=== PATIENT | female | born 1945 | race Caucasian/White ===

== ENCOUNTER 2017-04-27 23:22 | Inpatient (IN) | payer MEDICARE ==
[~2017-04-27] VITALS: Ht 182.9 cm; Wt 138.2 kg
--- NOTE | ~2017-04-27 | OP ---
PATIENT NAME: MEIR RAMIRES MEDICAL RECORD: [id number] :41 LOCATION:D.MS [id number] ADMISSION DATE:04/27/17 SURGEON: EVENS LASSITER MD DATE OF OPERATION: 04/28/2017 PREOPERATIVE DIAGNOSIS: Postmenopausal bleeding. POSTOPERATIVE DIAGNOSIS. Postmenopausal bleeding. PROCEDURE: Dilation and curettage. SURGEON: Evens Lassiter MD ANESTHESIOLOGIST: Jesus Olmedo MD ANESTHESIA: General. FINDINGS: Exam under anesthesia is limited by body habitus. The cervix is unremarkable. Copious amounts of curettings returned at the time of D&C. SPECIMEN REMOVED: Endometrial curettings. SPECIMEN DISPOSITION: Pathology. ESTIMATED BLOOD LOSS: Less or equal to 50 mL. FLUIDS: 300 cc of normal saline. URINE OUTPUT: Quantity sufficient to void prior to the procedure. COMPLICATIONS: None. DRAINS: None. INDICATIONS: The patient is a 71-year-old female recently admitted to [facility] for depression and suicidal ideation. The patient has been discharged from there. During that time, WATER PLANT OPERATOR consult obtained, the patient with heavy vaginal bleeding and uterine or transvaginal ultrasound showing the uterine lining in excess of 3 cm. The patient has been consented for dilation and curettage. DESCRIPTION OF PROCEDURE: After informed consent was assured, the patient was taken to the operating room where anesthetic is obtained. She was placed in Dontrell stirrups and prepped and draped in the usual sterile fashion. Cervix is grasped with a single tooth tenaculum after introducing a speculum. The cervix is dilated to accommodate a #2 sharp curette. This was passed gently to the fundus and good cry is now obtained throughout. The specimens that have been obtained are scraped out onto a Telfa pad and all fragments removed from the vaginal vault with a spoon. All fragments as well as specimen on the Telfa pad was sent to pathology. The patient is awake and went to recovery room in stable condition. Sponge, lap, needle counts are correct. TRANSINT:[id number] Voice Confirmation ID: [id number] DOCUMENT ID: [id number] OPERATIVE REPORT [id number] MEIR RAMIRES EVENS LASSITER MD at 0820 CC: [id number] DICTATION DATE: 04/28/17 1012 MACHINE TRIMMER: 04/28/17 1332 DIS IN 04/28/17 [facility] [address] [place] [address]
--- NOTE | ~2017-04-27 | DS ---
PATIENT:MEIR RAMIRES :41 MEDICAL RECORD: [id number] DISCHARGE SUMMARY ADMISSION DATE: 04/27/17 DISCHARGE DATE: 04/28/17 DATE OF ADMISSION: 04/27/2017 DATE OF DISCHARGE: 04/28/2017 ADMISSION DIAGNOSES: 1. Postmenopausal bleeding. 2. Morbid obesity. DISCHARGE DIAGNOSES: 1. Postmenopausal bleeding. 2. Morbid obesity. PROCEDURE: Dilation and curettage. ATTENDING PHYSICIAN: Jone Magallon MD HISTORY OF PRESENT ILLNESS: See the H&P in the chart. HOSPITAL COURSE: The [facility] The patient was discharged from there. During that hospitalization, the patient had significant vaginal bleeding and BALANCE BRIDGE INSPECTOR was consulted. The patient had scheduled D&C, but prior to procedure being performed the patient was discharged. Due to the patient's physical handicaps and difficulty in transportation, it was felt prudent to keep her hospitalized to facilitate the necessary procedure for diagnosis and treatment. The patient had no significant events occur the 1 night she stayed in the hospital. The patient had her dilation and curettage performed and she was discharged home. The patient has been asked to follow up at the [facility] in 2 weeks to review her pathology and discuss any further treatment if indicated. TRANSINT:[id number] Voice Confirmation ID: [id number] DOCUMENT ID: [id number] JONE MAGALLON MD at 1727 CC: [id number] DICTATION DATE: 06/11/17 07 CARDIOVASCULAR OR NURSE: 06/11/17 1354 DIS IN 04/28/17 [place] [id number] [place] [address]
--- NOTE | ~2017-04-27 | HP ---
PATIENT: MEIR RAMIRES MEDICAL RECORD: [id number] ACCOUNT: [id number] LOCATION:D.MS [id number] : 41 ADMISSION DATE: 04/27/17 HISTORY AND PHYSICAL EXAMINATION See Addendum Objective Data History of Present Illness: Patient is a 71 year old with several month history of vaginal bleeding. Denies pain and early saiety. No unintended wt loss. Neurological Hx: NONE EENT Hx: GLASSES, DENTURES Endocrine Hx: NONE Cardiovascular Hx: NONE Respiratory Hx: NONE Cancer Hx: NONE Immune Disorders: NONE Psychosocial Hx: DEPRESSION, SUICIDAL, ANXIETY Surgery Hx: NONE Allergies Coded Allergies: No Known Allergies (04/22/17) Medications Reported Medications [VENLAFAXINE ER 150MG] Levothyroxine (Levoxyl) 50 MCG PO BEFORE BREAKFAST Tolterodine (Detrol) 2 MG PO DAILY Lisinopril 10 MG PO DAILY Discontinued Reported Medications Venlafaxine (Effexor) 75 MG PO DAILY Levothyroxine (Synthroid) 25 MCG PO DAILY@0600 Family Hx Parent: CARDIOVASCULAR DISEASE, CANCER Sibling: NONE KNOWN Natural Child: NONE KNOWN Social History Smoking Status: FORMER TOBACCO USER Alcohol: No Recreational Drug Use: No Review of Systems GEN fatigue, negative weakness, negative anxiety, depression, negative for fever PACKAGING TECH negative dizziness, negative numbness, negative mental change CV neg chest pain, neg palpitations, neg orthopnea ID neg fever, neg chills, neg sweats GI neg nausea, neg emesis, neg abdominal pain neg dialysis, neg wild, neg hematuria HEME neg epistaxis, neg hemoptysis, neg hematuria, neg GI bleeding ENDO neg thirsty, neg sweaty Skin No Rash, No Lesions HISTORY AND PHYSICAL [id number] MEIR RAMIRES Pulm neg SOB, neg cough Musc/skel pain, stiffness OB Assessment VS: Vital Signs Date Time Temp Pulse Resp B/P B/P Pulse O2 O2 Flow FiO2 Mean Ox Delivery Rate 04/27 0947 97.3 71 16 130/81 96 ROOM AIR 04/26 1916 98.2 92 15 104/49 93 General Appearance: alert, awake, conversant HEENT: anicteric, mucus membranes moist, pink conjunctivae Cardiovascular Assessment: normal cap refill, pedal edema Neur/PACKAGING TECH: alert, oriented times 4, speech clear Resp Assessment: no acute distress Abdomen/GI Assessment: soft, nontender Extremity Assessment: normal inspection Finding/Data: I&O LAST 24 HOURS 04/27 0600 Intake Total 1320 Output Total Balance 1320 Laboratory Tests 04/24 04/25 04/25 04/26 04/26 1716 0639 1640 0638 1726 Chemistry POC Glucose (70 - 110 MG/DL) 108 104 104 98 99 04/27 04/27 0600 0627 Chemistry POC Glucose (70 - 110 MG/DL) 100 Hematology WBC (4.8 - 10.8 10x3/uL) 11.8 RBC (4.00 - 5.40 10x6/uL) 3.90 Hgb (12 - 16 g/dL) 11.9 Hct (36.0 - 48.0 %) 37.6 MCV (80.0 - 100.0 fL) 96.4 MCH (26.0 - 34.0 pg) 30.5 MCHC (31.0 - 37.0 g/dL) 31.6 RDW (11.5 - 14.5 %) 15.2 Plt Count (130 - 400 10x3/uL) 197 MPV (7.4 - 10.4 fL) 11.1 Absolute Lymphs (auto) (1.18 - 3.74 10x3/uL) 2.43 Neutrophils % (40 - 80 %) 68.4 Lymphocytes % (15 - 50 %) 20.7 Monocytes % (2 - 11 %) 8.7 Eosinophils % (0 - 7 %) 1.3 Basophils % (0 - 2 %) 0.3 Immature Granulocytes (0 - 5 %) 0.6 Absolute Neutrophils (1.56 - 6.13 10x3/uL) 8.04 HISTORY AND PHYSICAL [id number] MEIR RAMIRES H&P IMPRESSION Impression: Postmenopausal bleeding D&C at 1639 SECTION 2 ADDENDUM 1: 04/27/17 1640 JONE LASSITER PMHx: Hypothyroidism, HTN, OAB at 1641 All edits/amendments must be made on the electronic document DICTATION DATE: 04/27/171633 SUPERVISOR CORE SHOP: LEONID 04/27/17 163 RPT#: [id number] DC DATE: STATUS: ADM IN [facility] [address] [place] [address] END OF REPORT 05/24/2017 H&P was entered on wrong account number. Copied and put on correct account number. JONE Jama MD at 1647 CC: [id number] DICTATION DATE: 04/27/17 1639 SUPERVISOR CORE SHOP: LUIS ANTONIO 05/24/17 0851 DIS IN 04/28/17 [place] [address] [place] [address]
[~2017-04-27 23:22] MED LIST: DETROL2 MG PO; EFFEXOR25 MG PO; EFFEXOR75 MG PO; LEVOXYL50 MCG PO; LEXAPRO10 MG PO; LISINOPRIL10 MG PO; SYNTHROID25 MCG PO; VENLAFAXINE ER 150MG; WELLBUTRIN SR150 MG PO
[2017-04-28 03:24] VITALS: BP 120/52; Ht 182.9 cm; Wt 138.2 kg
[2017-04-28 05:54] VITALS: BP 137/56
[2017-04-28 07:41] VITALS: BP 153/62
[2017-04-28 15:16] VITALS: BP 113/81
== END 2017-04-28 21:32 | disposition home or self-care (01) | DRG 744 ==
LOC: D.MS 23:22
PROVIDERS: Obstetrics & Gynecology
PROC: 0UDB7ZZ Extraction of Endometrium, Via Natural or Artificial Opening (ICD-10-PCS; principal; 2017-04-28 10:00)
DX: N95.0 Postmenopausal bleeding (principal); Z68.41 Body mass index [BMI] 40.0-44.9, adult; N39.0 Urinary tract infection, site not specified; F32.9 Major depressive disorder, single episode, unspecified; E03.9 Hypothyroidism, unspecified; I10 Essential (primary) hypertension; E66.01 Morbid (severe) obesity due to excess calories; J42 Unspecified chronic bronchitis; G89.4 Chronic pain syndrome; E53.8 Deficiency of other specified B group vitamins; E55.9 Vitamin D deficiency, unspecified; B95.4 Other streptococcus as the cause of diseases classified elsewhere

== ENCOUNTER 2017-07-27 11:33 | Inpatient (IN) | payer MEDICARE ==
[~2017-07-27] VITALS: Ht 182.9 cm; Wt 138.3 kg
[2017-07-27 12:36] LABS: BASOPHILS 0.3 % (0-2); HEMATOCRIT 41.4 % (36.0-48.0); HEMOGLOBIN 13.3 g/dL (12-16); IMMATURE GRANULOCYTES 0.9 % (0-5); LYMPHOCYTES 20.4 % (15-50); MCH 30.4 pg (26.0-34.0); MCHC 32.1 g/dL (31.0-37.0); MCV 94.5 fL (80.0-100.0); MEAN PLATELET VOLUME 11.1 fL (7.4-10.4); MONOCYTES 7.1 % (2-11); NEUTROPHILS 70.3 % (40-80); PLATELET COUNT 200 10x3/uL (130-400); RBC 4.38 10x6/uL (4.00-5.40); RDW 16.1 % (11.5-14.5); WBC 14.2 10x3/uL (4.8-10.8)
[2017-07-27 12:50] LABS: ALBUMIN 2.9 g/dL (3.4-5.0); BILIRUBIN - TOTAL 0.35 mg/dL (0.2-1.3); CALCIUM 9.2 mg/dL (8.5-10.1); CARBON DIOXIDE 30.6 mmol/L (21.0-32.0); CREATININE - SERUM 1.1 mg/dL (0.6-1.3); POTASSIUM - SERUM 4.6 mmol/L (3.5-5.1); PROTEIN - SERUM 7.4 g/dL (6.4-8.2)
[2017-07-27 13:16] LABS: APPEARANCE CLEAR (CLEAR); BACTERIA FEW /hpf (NONE SEEN); BILIRUBIN NEGATIVE (NEGATIVE); COLOR YELLOW (YELLOW); EPITHELIAL CELLS 0-5 /hpf (0-5); GLUCOSE NEGATIVE (NEGATIVE); KETONE NEGATIVE (NEGATIVE); NITRITE NEGATIVE (NEGATIVE); PROTEIN NEGATIVE (NEGATIVE); WHITE CELLS - URINE OCC /hpf (0-5)
[2017-07-27] MEDS ORDERED: BIOFREEZE (18:43)
[2017-07-27 20:00] VITALS: BP 94/75
[2017-07-27 23:41] VITALS: BP 158/62; BMI 41.4
[2017-07-28] VITALS: BP 98/42
[2017-07-28 04:00] VITALS: BP 106/59
[2017-07-28 06:39] LABS: BASOPHILS 0.2 % (0-2); EOSINOPHILS 1.2 % (0-7); HEMOGLOBIN 13.2 g/dL (12-16); IMMATURE GRANULOCYTES 0.9 % (0-5); LYMPHOCYTES 23.3 % (15-50); MCH 29.9 pg (26.0-34.0); MCHC 31.4 g/dL (31.0-37.0); MEAN PLATELET VOLUME 11.4 fL (7.4-10.4); MONOCYTES 9.2 % (2-11); NEUTROPHILS 65.2 % (40-80); PLATELET COUNT 219 10x3/uL (130-400); RBC 4.42 10x6/uL (4.00-5.40); RDW 16.6 % (11.5-14.5); WBC 12.9 10x3/uL (4.8-10.8)
[2017-07-28 06:51] LABS: CALCIUM 9.2 mg/dL (8.5-10.1); CARBON DIOXIDE 29.6 mmol/L (21.0-32.0); CREATININE - SERUM 1.2 mg/dL (0.6-1.3); POTASSIUM - SERUM 4.6 mmol/L (3.5-5.1)
[2017-07-28 08:45] VITALS: BP 112/63
[2017-07-28 12:30] VITALS: BP 122/58
[2017-07-28 15:05] VITALS: Ht 182.9 cm; Wt 138.3 kg
[2017-07-28 16:45] VITALS: BP 150/72
[2017-07-28 20:00] VITALS: BP 138/57
[2017-07-29] VITALS: BP 142/67
[2017-07-29 04:00] VITALS: BP 139/56
[2017-07-29 06:37] LABS: BASOPHILS 0.2 % (0-2); EOSINOPHILS 1.3 % (0-7); HEMATOCRIT 43.3 % (36.0-48.0); HEMOGLOBIN 13.7 g/dL (12-16); LYMPHOCYTES 22.8 % (15-50); MCH 30.4 pg (26.0-34.0); MCHC 31.6 g/dL (31.0-37.0); MEAN PLATELET VOLUME 11.4 fL (7.4-10.4); MONOCYTES 7.5 % (2-11); NEUTROPHILS 67.2 % (40-80); PLATELET COUNT 199 10x3/uL (130-400); RBC 4.51 10x6/uL (4.00-5.40); RDW 16.6 % (11.5-14.5); WBC 12.7 10x3/uL (4.8-10.8)
[2017-07-29 06:56] LABS: ANION GAP 11.5 mmol/L (8-16); CALCIUM 8.9 mg/dL (8.5-10.1); CREATININE - SERUM 1.2 mg/dL (0.6-1.3); POTASSIUM - SERUM 4.5 mmol/L (3.5-5.1)
[2017-07-29 08:43] VITALS: BP 120/70
[2017-07-29 11:38] VITALS: BP 107/35
[2017-07-29 15:42] VITALS: BP 120/62
[2017-07-29 20:13] VITALS: BP 141/50
[2017-07-30] VITALS: BP 116/68
[2017-07-30 04:00] VITALS: BP 124/49
[2017-07-30 05:45] LABS: BASOPHILS 0.2 % (0-2); EOSINOPHILS 1.6 % (0-7); HEMATOCRIT 40.6 % (36.0-48.0); HEMOGLOBIN 12.8 g/dL (12-16); IMMATURE GRANULOCYTES 0.9 % (0-5); LYMPHOCYTES 24.1 % (15-50); MCH 30.2 pg (26.0-34.0); MCHC 31.5 g/dL (31.0-37.0); MCV 95.8 fL (80.0-100.0); MEAN PLATELET VOLUME 11.3 fL (7.4-10.4); MONOCYTES 7.5 % (2-11); NEUTROPHILS 65.7 % (40-80); PLATELET COUNT 212 10x3/uL (130-400); RBC 4.24 10x6/uL (4.00-5.40); RDW 16.7 % (11.5-14.5); WBC 12.8 10x3/uL (4.8-10.8)
[2017-07-30 06:11] LABS: ANION GAP 10.5 mmol/L (8-16); CALCIUM 8.6 mg/dL (8.5-10.1); CARBON DIOXIDE 29.7 mmol/L (21.0-32.0); CREATININE - SERUM 1.2 mg/dL (0.6-1.3); POTASSIUM - SERUM 4.2 mmol/L (3.5-5.1)
[2017-07-30 08:25] VITALS: BP 102/52
[2017-07-30 11:49] VITALS: BP 130/49
[2017-07-30 16:43] VITALS: BP 143/66
[2017-07-30 20:00] VITALS: BP 96/55
[2017-07-31 04:00] VITALS: BP 93/60
[2017-07-31 07:05] LABS: BASOPHILS 0.3 % (0-2); EOSINOPHILS 1.6 % (0-7); HEMATOCRIT 41.2 % (36.0-48.0); HEMOGLOBIN 13.2 g/dL (12-16); IMMATURE GRANULOCYTES 1.1 % (0-5); MCH 30.6 pg (26.0-34.0); MCV 95.6 fL (80.0-100.0); MEAN PLATELET VOLUME 11.4 fL (7.4-10.4); MONOCYTES 9.1 % (2-11); NEUTROPHILS 60.9 % (40-80); RBC 4.31 10x6/uL (4.00-5.40); RDW 16.7 % (11.5-14.5); WBC 11.3 10x3/uL (4.8-10.8)
[2017-07-31 07:06] LABS: PLATELET COUNT 166 10x3/uL (130-400)
[2017-07-31 07:35] LABS: ANION GAP 13.5 mmol/L (8-16); CARBON DIOXIDE 28.8 mmol/L (21.0-32.0); CREATININE - SERUM 1.3 mg/dL (0.6-1.3); POTASSIUM - SERUM 4.3 mmol/L (3.5-5.1)
[2017-07-31] MEDS ORDERED: BACTRIM DS TABL1 TAB PO (07:52)
[2017-07-31] MEDS ORDERED: NAPROSYN500 MG PO (07:52)
[2017-07-31 08:11] VITALS: BP 136/43
== END 2017-07-31 10:52 | disposition home health service (06) | DRG 603 ==
LOC: D.ER 11:33 → D.MS 16:55
PROVIDERS: Family Medicine
DX: L03.116 Cellulitis of left lower limb (principal); Z68.41 Body mass index [BMI] 40.0-44.9, adult; I10 Essential (primary) hypertension; J44.9 Chronic obstructive pulmonary disease, unspecified; E66.01 Morbid (severe) obesity due to excess calories; M17.11 Unilateral primary osteoarthritis, right knee

== ENCOUNTER 2017-08-06 10:09 | Emergency (ER) | payer MEDICARE ==
[~2017-08-06] VITALS: Ht 182.9 cm; Wt 136.4 kg
[~2017-08-06 10:09] MED LIST changes: +BACTRIM DS TABL1 TAB PO; +BIOFREEZE; +NAPROSYN500 MG PO
[2017-08-06 10:11] VITALS: Ht 182.9 cm; Wt 136.4 kg
[2017-08-06 11:06] LABS: BASOPHILS 0.2 % (0-2); EOSINOPHILS 2.1 % (0-7); HEMATOCRIT 42.8 % (36.0-48.0); HEMOGLOBIN 13.6 g/dL (12-16); IMMATURE GRANULOCYTES 0.5 % (0-5); LYMPHOCYTES 20.8 % (15-50); MCH 30.2 pg (26.0-34.0); MCHC 31.8 g/dL (31.0-37.0); MCV 95.1 fL (80.0-100.0); MEAN PLATELET VOLUME 11.4 fL (7.4-10.4); MONOCYTES 7.2 % (2-11); NEUTROPHILS 69.2 % (40-80); RDW 16.5 % (11.5-14.5); WBC 11.3 10x3/uL (4.8-10.8)
[2017-08-06 11:08] LABS: PLATELET COUNT 208 10x3/uL (130-400)
[2017-08-06 11:13] LABS: ALBUMIN 3.5 g/dL (3.4-5.0); BILIRUBIN - TOTAL 0.3 mg/dL (0.2-1.3); CALCIUM 9.1 mg/dL (8.5-10.1); CARBON DIOXIDE 27.7 mmol/L (21.0-32.0); CREATININE - SERUM 1.3 mg/dL (0.6-1.3); POTASSIUM - SERUM 4.7 mmol/L (3.5-5.1); PROTEIN - SERUM 7.9 g/dL (6.4-8.2)
[2017-08-06 11:33] LABS: APPEARANCE SLT CLOUDY (CLEAR); BILIRUBIN NEGATIVE (NEGATIVE); COLOR YELLOW (YELLOW); GLUCOSE NEGATIVE (NEGATIVE); KETONE NEGATIVE (NEGATIVE); NITRITE NEGATIVE (NEGATIVE); PROTEIN NEGATIVE (NEGATIVE); UROBILINOGEN NORMAL (NORMAL)
[2017-08-06 11:34] LABS: RED CELLS - URINE >50 /hpf (0-5); WHITE CELLS - URINE 0-5 /hpf (0-5)
[2017-08-06 11:35] LABS: BACTERIA FEW /hpf (NONE SEEN); GRANULAR CAST RARE /lpf (NONE SEEN); HYALINE CAST RARE /lpf (NONE SEEN); MUCUS <1+ /lpf (NONE SEEN)
[2017-08-06 12:50] VITALS: BP 164/94
== END 2017-08-06 12:40 | disposition home or self-care (01) ==
LOC: D.ER 10:09
PROVIDERS: Family Medicine
DX: N93.9 Abnormal uterine and vaginal bleeding, unspecified (principal)

== ENCOUNTER 2017-12-16 01:42 | Emergency (ER) | payer MEDICARE ==
[~2017-12-16] VITALS: Ht 182.9 cm; Wt 138.6 kg
[2017-12-16 01:50] VITALS: Ht 182.9 cm; Wt 138.6 kg
[2017-12-16 02:23] LABS: BASOPHILS 0.3 % (0-2); HEMATOCRIT 43.3 % (36.0-48.0); HEMOGLOBIN 14.1 g/dL (12-16); IMMATURE GRANULOCYTES 1.1 % (0-5); LYMPHOCYTES 21.2 % (15-50); MCH 31.2 pg (26.0-34.0); MCHC 32.6 g/dL (31.0-37.0); MCV 95.8 fL (80.0-100.0); MEAN PLATELET VOLUME 12.1 fL (7.4-10.4); MONOCYTES 7.1 % (2-11); NEUTROPHILS 69.3 % (40-80); PLATELET COUNT 212 10x3/uL (130-400); RBC 4.52 10x6/uL (4.00-5.40); RDW 14.4 % (11.5-14.5); WBC 18.9 10x3/uL (4.8-10.8)
[2017-12-16 02:29] LABS: ANION GAP 13.3 mmol/L (8-16); BILIRUBIN - TOTAL 0.4 mg/dL (0.2-1.3); CALCIUM 9.1 mg/dL (8.5-10.1); CARBON DIOXIDE 26.1 mmol/L (21.0-32.0); CREATININE - SERUM 1.2 mg/dL (0.6-1.3); POTASSIUM - SERUM 4.4 mmol/L (3.5-5.1); PROTEIN - SERUM 7.9 g/dL (6.4-8.2)
[2017-12-16 02:34] LABS: APPEARANCE CLOUDY (CLEAR); BACTERIA FEW /hpf (NONE SEEN); BILIRUBIN NEGATIVE (NEGATIVE); COLOR RED (YELLOW); GLUCOSE NEGATIVE (NEGATIVE); KETONE NEGATIVE (NEGATIVE); NITRITE NEGATIVE (NEGATIVE); PROTEIN 1+ mg/dL (NEGATIVE); RED CELLS - URINE >50 /hpf (0-5); UROBILINOGEN NORMAL (NORMAL)
[2017-12-16] MEDS ORDERED: MACROBID100 MG PO (03:15)
[2017-12-16 03:50] VITALS: BP 134/70
== END 2017-12-16 03:50 | disposition home or self-care (01) ==
LOC: D.ER 01:42
PROVIDERS: Emergency Medicine
DX: R31.9 Hematuria, unspecified (principal); N39.0 Urinary tract infection, site not specified; M54.5 Low back pain; R10.30 Lower abdominal pain, unspecified; I10 Essential (primary) hypertension; J44.9 Chronic obstructive pulmonary disease, unspecified

== ENCOUNTER 2017-12-18 15:22 | Emergency (ER) | payer MEDICARE ==
[~2017-12-18] VITALS: Ht 182.9 cm; Wt 138.6 kg
[~2017-12-18 15:22] MED LIST changes: +MACROBID100 MG PO
[2017-12-18 15:31] VITALS: Ht 182.9 cm; Wt 138.6 kg
[2017-12-18 16:32] LABS: BASOPHILS 0.1 % (0-2); EOSINOPHILS 1.4 % (0-7); HEMATOCRIT 40.8 % (36.0-48.0); HEMOGLOBIN 13.3 g/dL (12-16); IMMATURE GRANULOCYTES 0.9 % (0-5); LYMPHOCYTES 18.1 % (15-50); MCH 31.1 pg (26.0-34.0); MCHC 32.6 g/dL (31.0-37.0); MCV 95.3 fL (80.0-100.0); MEAN PLATELET VOLUME 11.3 fL (7.4-10.4); MONOCYTES 6.8 % (2-11); NEUTROPHILS 72.7 % (40-80); PLATELET COUNT 208 10x3/uL (130-400); RBC 4.28 10x6/uL (4.00-5.40); RDW 14.4 % (11.5-14.5); WBC 14.7 10x3/uL (4.8-10.8)
[2017-12-18 16:34] LABS: APPEARANCE CLEAR (CLEAR); BILIRUBIN NEGATIVE (NEGATIVE); COLOR YELLOW (YELLOW); GLUCOSE NEGATIVE (NEGATIVE); KETONE NEGATIVE (NEGATIVE); NITRITE NEGATIVE (NEGATIVE); PROTEIN NEGATIVE (NEGATIVE); SPECIFIC GRAVITY 1.025 (1.005-1.020); UROBILINOGEN NORMAL (NORMAL)
[2017-12-18 17:02] LABS: ALBUMIN 2.9 g/dL (3.4-5.0); ANION GAP 12.4 mmol/L (8-16); BILIRUBIN - TOTAL 0.25 mg/dL (0.2-1.3); CALCIUM 8.9 mg/dL (8.5-10.1); CARBON DIOXIDE 29.5 mmol/L (21.0-32.0); CREATININE - SERUM 1.1 mg/dL (0.6-1.3); POTASSIUM - SERUM 3.9 mmol/L (3.5-5.1); PROTEIN - SERUM 7.4 g/dL (6.4-8.2)
[2017-12-18 20:37] VITALS: BP 144/64
[2017-12-19] MEDS ORDERED: PROVERA10 MG PO (18:35)
== END 2017-12-18 20:38 | disposition home or self-care (01) ==
LOC: D.ER 15:22
PROVIDERS: Family Medicine
DX: N93.9 Abnormal uterine and vaginal bleeding, unspecified (principal); N85.00 Endometrial hyperplasia, unspecified; N95.0 Postmenopausal bleeding; I10 Essential (primary) hypertension

== ENCOUNTER 2017-12-19 15:59 | Inpatient (IN) | payer MEDICARE ==
[~2017-12-19] VITALS: Ht 182.9 cm; Wt 138.6 kg
--- NOTE | ~2017-12-19 | MORECARE ---
CASE MANAGEMENT DISCHARGE SUMMARY PATIENT: MEIR RAMIRES UNIT: [id number] ADM DATE: 12/19/17 AGE: 72 : 43 SEX: F ROOM/BED: D.1222 AUTHOR: HIRA DELVALLE PHYSICIAN: REFERRING PHYSICIAN: JONE LASSITER MD DATE OF SERVICE: 12/21/17 Discharge Plan Patient Name: MEIR RAMIRES [facility] [facility] 1945 Planned Disposition: Home Anticipated Discharge Date: Discharge Date: 12/21/2017 Expected LOS: Initial Reviewer: [email or web address] Initial Review Date: 12/19/2017 Generated: 12/21/17 7:26 pm DCPIA - Discharge Planning Initial Assessment Updated by [email or web address]: Kacie Toth on 12/21/17 6:22 pm * Is the patient Alert and Oriented? Yes * How many steps to enter\exit or inside your home? ramp * PCP Tejinder * Pharmacy [facility] * Preadmission Environment Home with Family * ADLs Independent * Other Equipment walker, wheelchair, cane, shower chair * List name and contact numbers for known caregivers / representatives who currently or will assist patient after discharge: lanettemark ramires [phone] * Verbal permission to speak to the caregivers and representatives has been obtained from the patient. Yes * Community resources currently utilized Other * Please name any agencies selected above. non medical care - [facility] * Additional services required to return to the preadmission environment? Yes * Can the patient safely return to the preadmission environment? No * Has this patient been hospitalized within the prior 30 days at any hospital? Yes Last DP export: 12/21/17 5:20 p Patient Name: MEIR RAMIRES Page [id number] at 1827 All edits/amendments must be made on the electronic document DICTATION DATE: 12/21/171825 NURSE COORDINATOR: LUIS ANTONIO 12/21/171825 RPT#: [id number] DC DATE:12/21/17 STATUS: DIS IN [facility] [address] [place] [address] END OF REPORT
--- NOTE | ~2017-12-19 | OP ---
PATIENT NAME: MEIR RAMIRES MEDICAL RECORD: [id number] :41 [facility] ADMISSION DATE:12/19/17 SURGEON: EVENS LASSITER MD DATE OF OPERATION: 12/20/2017 PREOPERATIVE DIAGNOSES: 1. History of complex hyperplasia with atypia. 2. Noncompliance. 3. Post-menopausal vaginal bleeding. POSTOPERATIVE DIAGNOSES: 1. History of complex hyperplasia with atypia. 2. Noncompliance. 3. Post-menopausal vaginal bleeding. PROCEDURE: Dilation and curettage. SURGEON: Evens Lassiter MD PLY SPLICER: Akin Loco ANESTHESIA: General. FINDINGS: Uterus sounded to 8 cm. Old blood noted with slow bleeding from the os. The cervical os is dilated. Blood and gardiner tissue returned at the time of curettage. Cry obtained. SPECIMENS REMOVED: Endometrial curettings. SPECIMEN DISPOSITION: Pathology. ESTIMATED BLOOD LOSS: 100 cc. FLUIDS: 800 cc of lactated Ringer's. URINE OUTPUT: Quantity sufficient void prior to the procedure. COMPLICATIONS: None. DRAINS: None. INDICATIONS: The patient is a 72-year-old female, who was seen previously earlier this year with postmenopausal bleeding and received D&C. The patient declined operative intervention and began progesterone therapy. The patient was lost to follow up until presenting in the Emergency Room with heavy vaginal bleeding. Endometrial biopsy was attempted in the clinic and able to get proper specimen. The patient was admitted for observation due to vaginal bleeding and suspected uterine cancer. DESCRIPTION OF PROCEDURE: After informed consent was assured, the patient was taken to the operating room where anesthetic was obtained. The patient was placed in stirrups, prepped and draped. Speculum was introduced in the vagina and the cervix grasped. The cervix is noted to be dilated to easily accommodate a 20 Hanks dilator. Uterine sound was used to obtain the uterine depth. Curette was gently passed into the fundus and curettage was performed. Cry is OPERATIVE REPORT [id number] MEIR RAMIRES obtained. Copious amounts of old blood and tissues were returned. This was placed on Telfa and passed off the field. The cervix is visualized at the close of the procedure and slow bleeding is noted. The patient was taken down from stirrups, awakened, and went to recovery area in stable condition. TRANSINT:[id number] Voice Confirmation ID: [id number] DOCUMENT ID: [id number] EVENS LASSITER MD at 0830 CC: [id number] DICTATION DATE: 12/20/17 190 WELDER GAS AUTOMATIC: 12/20/17 2348 DIS IN 12/21/17 [facility] [address] [place] [address]
--- NOTE | ~2017-12-19 | DS ---
PATIENT:MEIR RAMIRES :41 MEDICAL RECORD: [id number] DISCHARGE SUMMARY ADMISSION DATE: 12/19/17 DISCHARGE DATE: 12/21/17 DATE OF ADMISSION: 12/19/2017 DATE OF DISCHARGE: 12/21/2017 ADMISSION DIAGNOSES: 1. Heavy vaginal bleeding. 2. Poor medical compliance. 3. Limited social resources. DISCHARGE DIAGNOSES: 1. Heavy vaginal bleeding. 2. Poor medical compliance. 3. Limited social resources. PROCEDURE PERFORMED WHILE HOSPITALIZED: Dilation and curettage. ATTENDING: Jone Magallon MD HISTORY OF PRESENT ILLNESS: See the H&P in the chart. SUMMARY OF HOSPITALIZATION: The patient was admitted to the hospital and was observed overnight. The patient was kept n.p.o. after midnight and a D&C was performed. The patient has had a prior D&C about approximately 9 months ago where she was found to have complex hyperplasia with atypia. The fear at this time is the patient may have uterine cancer. The patient was lost to follow up and noncompliant with her therapy. The patient understands the severity of the illness she may have. The patient has been asked to follow up in the clinic. I will contact her pending pathology report and arrange follow up in [place] at the oncology clinic as necessary. At this time, the patient has minimal bleeding. I have given her bleeding precautions and a prescription for Provera. The patient has been instructed to take 20 mg at bedtime for the foreseeable future. TRANSINT:[id number] Voice Confirmation ID: [id number] DOCUMENT ID: [id number] JONE MAGALLON MD at 0830 CC: [id number] DICTATION DATE: 12/21/17 1559 BISCUIT PACKER: 12/21/17 2231 DIS IN 12/21/17 [place] [id number] [place] [id number]
--- NOTE | ~2017-12-19 | MORECARE ---
CASE MANAGEMENT DISCHARGE SUMMARY PATIENT: MEIR RAMIRES UNIT: [id number] ADM DATE: 12/19/17 AGE: 72 : 43 SEX: F ROOM/BED: D.1222 AUTHOR: HIRA DELVALLE PHYSICIAN: REFERRING PHYSICIAN: JONE LASSITER MD DATE OF SERVICE: 12/21/17 Discharge Plan Patient Name: MEIR RAMIRES [facility] [facility] 1945 Planned Disposition: Home Anticipated Discharge Date: Discharge Date: 12/21/2017 Expected LOS: Initial Reviewer: [email or web address] Initial Review Date: 12/19/2017 Generated: 12/21/17 7:20 pm Patient Name: MEIR RAMIRES Dariela [id number] at 1820 All edits/amendments must be made on the electronic document DICTATION DATE: 12/21/171818 INFORMATION SECURITY ANALYST: LUIS ANTONIO 12/21/171818 RPT#: [id number] DC DATE:12/21/17 STATUS: DIS IN [facility] [address] [place] [address] END OF REPORT
--- NOTE | ~2017-12-19 | MORECARE ---
CASE MANAGEMENT DISCHARGE SUMMARY PATIENT: MEIR RAMIRES UNIT: [id number] ADM DATE: 12/19/17 AGE: 72 : 43 SEX: F ROOM/BED: D.1222 AUTHOR: HIRA DELVALLE PHYSICIAN: REFERRING PHYSICIAN: EVENS LASSITER MD DATE OF SERVICE: 12/21/17 Discharge Plan Patient Name: MEIR RAMIRES Facility: [facility]:[place] : 1945 Planned Disposition: Home Anticipated Discharge Date: Discharge Date: 12/21/2017 Expected LOS: Initial Reviewer: [email or web address] Initial Review Date: 12/19/2017 Generated: 12/21/17 7:40 pm Comments DCP- Discharge Planning Updated by [email or web address]: Kacie Toth on 12/21/17 5:[address] late entry 1405 patient Name: MEIR RAMIRES Admission Status: Urgent Accout number: [id number] Admission Date: 12-19-2017 : 1945 Admission Diagnosis: Attending: Evens Lassiter Current LOS: 2 Anticipated DC Date: Planned Disposition: Home Primary Insurance: MEDICARE A & B Discharge Planning Comments: CM met with patient at bedside. Patient plans on returning to her home in which she lives with her son. She denies any discharge needs at this time. She states that she has [facility] that comes in and assist her with her care. Patient request voucher for taxi upon discharge. CM got approval with rate supervisor for taxi voucher. Patient states that she will have scat transport to her follow up appointments. CM will continue to follow and assist as needed with discharge planning / needs. Senior Environmental Engineer: Kacie Toth DCPIA - Discharge Planning Initial Assessment Updated by [email or web address]: Kacie Toth on 12/21/17 6:22 pm * Is the patient Alert and Oriented? Yes * How many steps to enter\exit or inside your home? ramp * PCP Tejinder * Pharmacy [facility] * Preadmission Environment Home with Family * ADLs Independent * Other Equipment walker, wheelchair, cane, shower chair * List name and contact numbers for known caregivers / representatives who currently or will assist patient after discharge: lanette ramires [phone] * Verbal permission to speak to the caregivers and representatives has been obtained from the patient. Yes * Community resources currently utilized Other * Please name any agencies selected above. non medical care - [facility] * Additional services required to return to the preadmission environment? Yes * Can the patient safely return to the preadmission environment? No * Has this patient been hospitalized within the prior 30 days at any hospital? Yes Last DP export: 12/21/17 5:26 p Patient Name: MEIR RAMIRES Page [id number] at 1840 All edits/amendments must be made on the electronic document DICTATION DATE: 12/21/171839 TRANSFER SPECIALIST: LUIS ANTONIO 12/21/171839 RPT#: [id number] DC DATE:12/21/17 STATUS: DIS IN [facility] [address] [place] [address] END OF REPORT
[2017-12-19 16:49] VITALS: BP 100/63
[2017-12-19 17:44] LABS: BASOPHILS 0.4 % (0-2); EOSINOPHILS 1.5 % (0-7); HEMOGLOBIN 13.5 g/dL (12-16); LYMPHOCYTES 18.7 % (15-50); MCH 30.3 pg (26.0-34.0); MCHC 31.4 g/dL (31.0-37.0); MCV 96.6 fL (80.0-100.0); MEAN PLATELET VOLUME 11.7 fL (7.4-10.4); MONOCYTES 7.6 % (2-11); NEUTROPHILS 70.8 % (40-80); PLATELET COUNT 192 10x3/uL (130-400); RBC 4.45 10x6/uL (4.00-5.40); RDW 14.3 % (11.5-14.5); WBC 16.4 10x3/uL (4.8-10.8)
[2017-12-19 17:51] LABS: ALBUMIN 3.2 g/dL (3.4-5.0); BILIRUBIN - TOTAL 0.32 mg/dL (0.2-1.3); CARBON DIOXIDE 22.9 mmol/L (21.0-32.0); PROTEIN - SERUM 7.3 g/dL (6.4-8.2)
[2017-12-19 17:53] LABS: ANION GAP 20.6 mmol/L (8-16); POTASSIUM - SERUM 4.5 mmol/L (3.5-5.1)
[2017-12-19 18:11] VITALS: BP 100/63; Ht 182.9 cm; Wt 138.6 kg
[2017-12-19 18:18] LABS: INR 1.42 (0.85-1.17); PROTIME 16.8 SECONDS (11.6-15.0)
[2017-12-19] MEDS ORDERED: PROVERA10 MG PO (18:35)
[2017-12-19 19:47] VITALS: BP 131/69
[2017-12-20] VITALS (10 sets, daily range): BP systolic 107–153; BP diastolic 40–69
[2017-12-21 00:05] VITALS: BP 127/41
[2017-12-21 04:23] VITALS: BP 101/42
[2017-12-21 07:35] VITALS: BP 110/54
[2017-12-21 07:39] LABS: BASOPHILS 0.4 % (0-2); EOSINOPHILS 2.4 % (0-7); HEMATOCRIT 38.2 % (36.0-48.0); IMMATURE GRANULOCYTES 0.9 % (0-5); LYMPHOCYTES 20.8 % (15-50); MCH 30.6 pg (26.0-34.0); MCHC 31.4 g/dL (31.0-37.0); MCV 97.4 fL (80.0-100.0); MEAN PLATELET VOLUME 11.6 fL (7.4-10.4); MONOCYTES 8.8 % (2-11); NEUTROPHILS 66.7 % (40-80); PLATELET COUNT 182 10x3/uL (130-400); RBC 3.92 10x6/uL (4.00-5.40); RDW 14.3 % (11.5-14.5); WBC 12.7 10x3/uL (4.8-10.8)
[2017-12-21 07:43] LABS: ANION GAP 11.1 mmol/L (8-16); CALCIUM 8.6 mg/dL (8.5-10.1); CARBON DIOXIDE 27.7 mmol/L (21.0-32.0)
[2017-12-21 07:49] LABS: POTASSIUM - SERUM 3.8 mmol/L (3.5-5.1)
[2017-12-21 11:05] VITALS: BP 118/54
== END 2017-12-21 16:45 | disposition home or self-care (01) | DRG 744 ==
LOC: D.SDCHOLD 15:59 → D.WS 16:08
PROVIDERS: Obstetrics & Gynecology
PROC: 0UDB7ZZ Extraction of Endometrium, Via Natural or Artificial Opening (ICD-10-PCS; principal; 2017-12-20 16:50)
DX: N95.0 Postmenopausal bleeding (principal); Z68.41 Body mass index [BMI] 40.0-44.9, adult; N85.2 Hypertrophy of uterus; I10 Essential (primary) hypertension; E03.9 Hypothyroidism, unspecified; E66.01 Morbid (severe) obesity due to excess calories; J44.9 Chronic obstructive pulmonary disease, unspecified; Z87.891 Personal history of nicotine dependence; Z91.19 Patient's noncompliance with other medical treatment and regimen

== ENCOUNTER 2018-09-02 21:20 | Emergency (ER) | payer MEDICARE ==
[~2018-09-02] VITALS: Ht 182.9 cm; Wt 138.6 kg
[~2018-09-02 21:20] MED LIST changes: +PROVERA10 MG PO
[2018-09-02 21:23] VITALS: Ht 182.9 cm; Wt 138.6 kg
[2018-09-02 22:01] LABS: APPEARANCE CLEAR (CLEAR); COLOR YELLOW (YELLOW)
[2018-09-02 22:02] LABS: BILIRUBIN NEGATIVE (NEGATIVE); GLUCOSE NEGATIVE (NEGATIVE); KETONE NEGATIVE (NEGATIVE); NITRITE NEGATIVE (NEGATIVE); PROTEIN NEGATIVE (NEGATIVE); UROBILINOGEN NORMAL (NORMAL)
[2018-09-02 22:12] LABS: EPITHELIAL CELLS 0-5 /hpf (0-5); RED CELLS - URINE 0-5 /hpf (0-5)
[2018-09-02 22:13] LABS: BACTERIA FEW /hpf (NONE SEEN)
[2018-09-02 23:03] VITALS: BP 169/80
== END 2018-09-02 23:03 | disposition home or self-care (01) ==
LOC: D.ER 21:20
PROVIDERS: Emergency Medicine
DX: N39.0 Urinary tract infection, site not specified (principal); E03.9 Hypothyroidism, unspecified; I10 Essential (primary) hypertension; J44.9 Chronic obstructive pulmonary disease, unspecified

== ENCOUNTER 2020-05-14 17:54 | Emergency (ER) | payer MEDICARE ==
[~2020-05-14] VITALS: Ht 182.9 cm; Wt 136.4 kg
[~2020-05-14 17:54] MED LIST changes: +IPRAT-ALBUT 0.5-3 ML INH; +PERFOROMIS20 MCG/21 UPD; +PREDNISONE20 MG PO; +ZITHROMAX250 MG PO
[2020-05-14 18:11] VITALS: Ht 182.9 cm; Wt 136.4 kg
[2020-05-14 18:15] VITALS: BP 114/72
== END 2020-05-14 19:20 | disposition left against medical advice (07) ==
LOC: D.ER 17:54
DX: R52 Pain, unspecified (principal)